=== PATIENT | male | born 1955 | race Caucasian/White ===

== ENCOUNTER → 2017-01-21 | Outpatient (CLI) | payer BC | LOC: CIMAGING 07:18 | PROVIDERS: ATTEND Family Medicine | DX: R16.1 Splenomegaly, not elsewhere classified (principal); K76.0 Fatty (change of) liver, not elsewhere classified; F10.10 Alcohol abuse, uncomplicated; Z87.891 Personal history of nicotine dependence | CPT/HCPCS: 76700-PO ==